=== PATIENT | female | born 1945 | race Caucasian/White ===

== ENCOUNTER → 2019-07-05 | Outpatient (CLI) | payer MEDICARE ==
--- NOTE | 2019-07-05 16:58 | REP ---
Maxillofacial CT without contrast: History: Swelling of the right lateral nasal wall. Rule out neoplasm of the nose. Technique: Helical scanning is acquired and 3 mm axial images reformatted. Coronal multiplanar reformation images are generated. Study includes the tip of the nose. CT findings: There is a focal area of skin thickening in the right lateral nose soft tissues. This measures 11 mm in greatest anteroposterior dimension by 3 mm in greatest thickness by approximately 11 mm in craniocaudal dimension. The lesion appears to involve thickening of the dermis. The underlying subcutaneous fat appears uninterrupted. No medial wall nasal involvement is seen. Bony nasal septum is intact. Nasal turbinate soft tissues are unremarkable and symmetric. There is partial opacification of the left maxillary sinus and moderate mucosal thickening is seen in the right maxillary sinus. There is some mucous in the right side of the sphenoid sinus. Mild mucosal thickening is seen in the ethmoid air cells. Frontal sinuses are small but clear. Mastoid aeration is normal and symmetric. No intraorbital abnormality is appreciated. There is vascular calcification in the carotid siphons bilaterally. Generalized volume loss is seen in the intracranial soft tissues. No intraorbital abnormality is seen. Impression: 1.1 x 0.3 x 1.1 cm area of dermal thickening on the right lateral nasal soft tissues. Polysinusitis mucosal changes. Vascular calcification. Electronically Signed by Nhan Coreas MD 07/05/2019 05:08 P
== END ==
LOC: M RAD 16:01
PROVIDERS: ATTEND Otolaryngology
DX: J32.0 Chronic maxillary sinusitis (principal)